=== PATIENT | male | born 1990 | race Caucasian/White ===

== ENCOUNTER → 2017-06-16 | Outpatient (CLI) | payer OTHER ==
--- NOTE | 2017-06-16 15:40 | RAD ---
Exam: Left shoulder radiograph 06/16/2017 at 1329 hours Indication: Left rotator cuff pain Comparison: None available Technique: 3 views left shoulder are provided. Findings: There is no acute fracture or dislocation involving the acromioclavicular and glenohumeral joints. No joint space narrowing. No soft tissue swelling. No osseous erosion or soft tissue gas. Bone mineralization is within normal limits. Impression: No acute fracture or dislocation.
== END | disposition home or self-care (01) ==
LOC: DXRADRC 13:20
PROVIDERS: ATTEND Nurse Practitioner Family
DX: M25.512 Pain in left shoulder (principal)
CPT/HCPCS: 73030